=== PATIENT | male | born 1985 | race Caucasian/White ===

== ENCOUNTER 2017-03-30 03:17 | Emergency (ER) | payer SELFPAY ==
[2017-03-30 04:17] VITALS: BP 163/78
== END 2017-03-30 04:00 | disposition home or self-care (01) ==
LOC: ED 03:17
DX: S51.811A Laceration without foreign body of right forearm, initial encounter (principal); W45.8XXA Other foreign body or object entering through skin, initial encounter; Y93.G3 Activity, cooking and baking; Y99.8 Other external cause status; Y92.89 Other specified places as the place of occurrence of the external cause

== ENCOUNTER 2020-04-16 19:52 | Emergency (ER) | payer OTHER ==
[~2020-04-16] VITALS: Ht 172.7 cm; Wt 70.5 kg
[2020-04-16 19:54] VITALS: Ht 172.7 cm; Wt 70.5 kg
[2020-04-16 22:32] VITALS: BP 126/79
== END 2020-04-16 22:32 | disposition home or self-care (01) ==
LOC: ED 19:52
DX: S01.01XA Laceration without foreign body of scalp, initial encounter (principal); S16.1XXA Strain of muscle, fascia and tendon at neck level, initial encounter; S30.1XXA Contusion of abdominal wall, initial encounter; B35.1 Tinea unguium; F10.10 Alcohol abuse, uncomplicated; Z90.89 Acquired absence of other organs; V28.4XXA Motorcycle driver injured in noncollision transport accident in traffic accident, initial encounter; Y93.I9 Activity, other involving external motion; Y92.488 Other paved roadways as the place of occurrence of the external cause; Y99.8 Other external cause status